=== PATIENT | female | born 1965 | race African-American/Black ===

== ENCOUNTER 2018-05-12 17:57 | Inpatient (IN) ==
[2018-05-12 18:53] LABS: Basophils % 0.2 % (0.0-0.8); Eosinophils # 0.3 10*3/uL (0.0-0.87); Eosinophils % 2.3 % (0.00-10.9); Hematocrit 39.1 VOL% (35.7-47.0); Hemoglobin 12.3 GM/DL (12.0-16.0); Immature Granulocytes % 0.4 %; Immature Granulocytes Absolute 0.05 #; Lymphocytes # 0.7 10*3/uL (1.4-4.0); Lymphocytes % 5.1 % (21.3-54.2); Mean Corpuscular HGB Conc 31.5 GM/DL (32-36); Mean Corpuscular Hemoglobin 28 PG (27-34); Mean Corpuscular Volume 89.7 FL (87-102); Mean Platelet Volume 11.4 FL (9.6-12.0); Monocytes # 0.7 10*3/uL (0.11-0.8); Monocytes % 4.9 % (1.7-12.7); Neutrophils # 11.5 10*3/uL (1.4-7.4); Neutrophils % 87.1 % (38.7-73.9); Platelet Count 218 T/CUMM (130-400); Red Blood Count 4.36 MC/CUMM (3.8-5.5); Red Cell Distribution Width 13.6 % (9.3-17.3); White Blood Count 13.2 T/CUMM (4-12)
[2018-05-12 19:08] LABS: Albumin 3.7 G/DL (3.4-5.0); Bilirubin,Total 0.4 MG/DL (0.2-1.0); Calcium 9.3 MG/DL (8.5-10.1); Osmolality,Calculated 272.8 MOS/KG (273-304); Potassium 3.7 MMOL/L (3.5-5.1); Total Protein 7.7 G/DL (6.4-8.3)
[2018-05-12] MEDS ORDERED: SODIUM CHLORIDE 0.9% 2,000 ML IV STA (19:09)
[2018-05-12] MEDS ORDERED: CEFEPIME 2,000 MG in SODIUM CHLORIDE 0.9% 100 ML IV STA (19:09)
[2018-05-12] MEDS ORDERED: VANCOMYCIN INJ 1,000 MG in SODIUM CHLORIDE 0.9% 250 ML IV STA (19:10)
[2018-05-12] MEDS ORDERED: KETOROLAC 30 MG/1 ML VIAL IV STA (19:41)
[2018-05-12] MEDS ORDERED: ACETAMINOPHEN 500 MG TABLET PO STA (19:41)
[2018-05-12 20:08] LABS: Apearance,Urine Slightly Hazy (Clear); Bilirubin,Urine Negative (Negative); Blood, Urine Small mg/dL (Negative); Glucose,Urine (UA) Negative (Negative); Ketones,Urine Negative (Negative); Mucus,Urine Occasional /LPF (Occasional); Nitrite,Urine Negative (Negative); Protein,Urine Negative; RBC,Urine 7 /HPF (0-4); Urine Color Yellow (Yellow); Urine Specific Gravity 1.023 (1.001-1.035); Urine Urobilinogen < 2.0 EU/DL (0.2-1.0); WBC,Urine 70 /HPF (0-6)
[2018-05-12] MEDS ORDERED: ACETAMINOPHEN 325 MG TABLET PO PRN (20:51)
[2018-05-12] MEDS ORDERED: DEXTROSE 50% 25 GM/50 ML SYRINGE IV PRN (20:51)
[2018-05-12] MEDS ORDERED: DOCUSATE SODIUM 100 MG CAPSULE PO PRN (20:51)
[2018-05-12] MEDS ORDERED: ZALEPLON 5 MG CAPSULE PO PRN (20:51)
[2018-05-12] MEDS ORDERED: DEXTROSE 50% 25 GM/50 ML VIAL IV PRN (20:51)
[2018-05-12] MEDS ORDERED: GLUCAGON 1 MG VIAL IM PRN ×2 (20:51)
[2018-05-12] MEDS ORDERED: ONDANSETRON 4 MG/2 ML VIAL IV PRN (20:51)
[2018-05-12] MEDS ORDERED: ALBUTEROL/IPRATROPIUM 3 ML NEB RESP TX PRN (20:55)
[2018-05-13] MEDS: SODIUM CHLORIDE 0.9% 1,000 ML IV SCH ×4 (00:50→21:38)
[2018-05-13] MEDS: PIPERACILLIN/TAZOBACTAM 3,375 MG in SODIUM CHLORIDE 0.9% 100 ML IV SCH ×4 (00:50→21:39)
[2018-05-13] MEDS: ENOXAPARIN 40 MG/0.4 ML SYRINGE SUBCUT SCH ×2 (00:50→21:41)
[2018-05-13 05:39] LABS: Basophils % 0.2 % (0.0-0.8); Eosinophils # 0.4 10*3/uL (0.0-0.87); Hemoglobin 12.1 GM/DL (12.0-16.0); Immature Granulocytes % 0.4 %; Immature Granulocytes Absolute 0.05 #; Lymphocytes # 0.9 10*3/uL (1.4-4.0); Lymphocytes % 7.7 % (21.3-54.2); Mean Corpuscular HGB Conc 30.3 GM/DL (32-36); Mean Corpuscular Hemoglobin 28 PG (27-34); Mean Corpuscular Volume 92.6 FL (87-102); Mean Platelet Volume 13.1 FL (9.6-12.0); Monocytes # 0.7 10*3/uL (0.11-0.8); Monocytes % 6.1 % (1.7-12.7); Neutrophils # 9.5 10*3/uL (1.4-7.4); Neutrophils % 82.6 % (38.7-73.9); Platelet Count 209 T/CUMM (130-400); Red Blood Count 4.32 MC/CUMM (3.8-5.5); Red Cell Distribution Width 13.9 % (9.3-17.3); White Blood Count 11.6 T/CUMM (4-12)
[2018-05-13 06:16] LABS: Calcium 8.8 MG/DL (8.5-10.1); Free T4 (Free Thyroxine) 0.85 NG/DL (0.76-1.46); Potassium 3.8 MMOL/L (3.5-5.1); Thyroid Stimulating Hormone 1.6 uIU/ml (0.358-3.74)
[2018-05-13] MEDS: PANTOPRAZOLE 40 MG TABLET PO SCH (08:52)
[2018-05-13] MEDS: INSULIN REGULAR 100 UNIT/ML SUBCUT SCH ×2 (09:44→16:16)
[2018-05-13] MEDS: ESCITALOPRAM 10 MG TABLET PO SCH (11:00)
[2018-05-13] MEDS: GABAPENTIN 300 MG CAPSULE PO SCH ×2 (11:01→21:41)
[2018-05-13] MEDS: predniSONE 20 MG TABLET PO SCH (11:01)
[2018-05-13] MEDS: ALBUTEROL/IPRATROPIUM 3 ML NEB RESP TX SCH ×2 (14:50→19:58)
[2018-05-13] MEDS: guaiFENesin/DM ER 600-30 MG TABLET PO SCH (21:41)
[2018-05-14] MEDS: ALBUTEROL/IPRATROPIUM 3 ML NEB RESP TX SCH ×2 (01:44→07:01)
[2018-05-14] MEDS: PIPERACILLIN/TAZOBACTAM 3,375 MG in SODIUM CHLORIDE 0.9% 100 ML IV SCH (05:49)
[2018-05-14 06:33] LABS: Basophils % 0.2 % (0.0-0.8); Eosinophils # 0.6 10*3/uL (0.0-0.87); Eosinophils % 4.5 % (0.00-10.9); Hematocrit 32.7 VOL% (35.7-47.0); Hemoglobin 9.9 GM/DL (12.0-16.0); Immature Granulocytes % 0.4 %; Immature Granulocytes Absolute 0.05 #; Lymphocytes # 1.7 10*3/uL (1.4-4.0); Lymphocytes % 13.3 % (21.3-54.2); Mean Corpuscular HGB Conc 30.3 GM/DL (32-36); Mean Corpuscular Hemoglobin 28 PG (27-34); Mean Corpuscular Volume 91.6 FL (87-102); Mean Platelet Volume 11.7 FL (9.6-12.0); Monocytes % 7.7 % (1.7-12.7); Neutrophils # 9.2 10*3/uL (1.4-7.4); Neutrophils % 73.9 % (38.7-73.9); Platelet Count 188 T/CUMM (130-400); Red Blood Count 3.57 MC/CUMM (3.8-5.5); Red Cell Distribution Width 13.9 % (9.3-17.3); White Blood Count 12.4 T/CUMM (4-12)
[2018-05-14 06:59] LABS: Albumin 2.9 G/DL (3.4-5.0); Bilirubin,Total 0.4 MG/DL (0.2-1.0); Calcium 8.4 MG/DL (8.5-10.1); Osmolality,Calculated 285.7 MOS/KG (273-304); Potassium 3.8 MMOL/L (3.5-5.1); Total Protein 6.4 G/DL (6.4-8.3)
[2018-05-14] MEDS: INSULIN REGULAR 100 UNIT/ML SUBCUT SCH (08:47)
[2018-05-14] MEDS: ESCITALOPRAM 10 MG TABLET PO SCH (09:15)
[2018-05-14] MEDS: guaiFENesin/DM ER 600-30 MG TABLET PO SCH (09:15)
[2018-05-14] MEDS: predniSONE 20 MG TABLET PO SCH (09:16)
[2018-05-14] MEDS: GABAPENTIN 300 MG CAPSULE PO SCH (09:16)
[2018-05-14] MEDS: PANTOPRAZOLE 40 MG TABLET PO SCH (09:17)
[2018-05-14 12:23] VITALS: BP 118/76
== END 2018-05-14 12:30 | disposition home or self-care (01) | DRG 195 ==
LOC: N.ED 17:57 → N.EDINP 21:58 → SUATTDRO 21:58 → N.5E 22:09
PROVIDERS: ADMIT Internal Medicine; ATTEND Internal Medicine Geriatric Medicine